=== PATIENT | male | born 1990 | race Caucasian/White ===

== ENCOUNTER 2018-02-09 22:58 | Emergency (ER) | payer OTHER, MEDICAID ==
[2018-02-09 23:08] VITALS: BP 127/72; BMI 30.9
[2018-02-10] MEDS ORDERED: DEMEROL INJ IM ONE (02:05)
--- NOTE | 2018-02-10 02:05 | DR.GENAD ---
HPI - PCP Primary Care Physician: NFD - Complaint/Symptoms Chief Complaint Doctors Comments: Patient presented to the ED for his way catheter to be removed. Chief Complaint:: PT HAD KIDNEY TRNASPLANT 01/07/2006. WAS IN [facility] FOR POSSIBLE REJECTION OF KIDNEY. THEY SENT PT HOME WITH WAY CATH. TODAY HE WAS IN [place] AND WENT TO WASH HANDS. HAD SHARP PAIN AND NOTICED BLOOD IN DRAINAGE. - Source History Provided: Patient, Family Member - Mode of Arrival Mode of Arrival: Ambulatory - Timing Onset of Chief Complaint: 02/09/18 PMH - PMH Past Medical History: Yes Past Medical History: COPD, Dialysis, Hypertension, Renal Disease Past Surgical History: Yes Surgical History: Ortho Surgery, Other Past Surgical History Comment: KIDNEY TRANSPLANT, - Family History History of Family Medical Conditions: Yes Family Medical History: Diabetes Mellitus, Coronary Artery Disease, Hypertension - Social History Does patient currently use any type of tobacco product: Yes Have you used tobacco products in the last 12 months: Yes Type of Tobacco Use: Cigarettes How many years tobacco product used: 10 Does any household member use tobacco: Yes Alcohol Use: None Do you use any recreational Drugs:: No Lives With: Family Lives Where: Home - infectious screening In the last 2 months have you had wt loss of >10#?: NO Have you had fever, night sweats or hemotysis?: No Have you traveled outside the country in the last 6 months?: No Isolation: Standard ROS - Review of Systems Eyes: No Symptoms Reported ENTM: No Symptoms Reported Respiratoy: No Symptoms Reported Cardiovascular: No Symptoms Reported Gastrointestinal/Abdominal: No Symptoms Reported Genitourinary: No Symptoms Reported Neurological: No Symptoms Reported Musculoskeletal: No Symptoms Reported Integumentary: No Symptoms Reported Hematologic/Lymphatic: No Symptoms Reported Endocrine: No Symptoms Reported Psychiatric: No Symptoms Reported All Other Systems: Reviewed and Negative PE - Vital Signs Vitals: Temperature 99.3 F Pulse Rate 110 Respiratory Rate 20 Blood Pressure 127/72 O2 Sat by Pulse Oximetry 93 - General General Appearance: Alert, In No Apparent Distress - Head Head Exam: Normal Inspection, Atraumatic - Eyes Eye exam: Normal Appearance, PERRL, EOMI - ENT ENT Exam: Normal Exam External Ear Exam: Normal External Inspection TM/Canal Exam: Bilateral Normal Nose Exam: Normal Nose Exam Mouth Exam: Normal Inspection Throat Exam: Normal Inspection - Neck Neck Exam: Normal Inspection, Full ROM - Chest Chest Inspection: Normal Inspection - Respiratory Respiratory Exam: Normal Lung Sounds Bilat Respiratory Exam: Bilateral Clear to Auscultation - Cardiovascular Cardiovascular Exam: Regular Rate, Normal Rhythm - Abdominal Exam Abdominal Exam: Normal Inspection, Normal Bowel Sounds Abdominal Tenderness: negative: RUQ, RLQ, LUQ, LLQ, Epigastrium, Suprapubic, Diffuse, Mild, Moderate, Severe, Other - Extremities Extremities Exam: Normal Inspection - Back Back Exam: Normal Inspection - Neurologic Neurological Exam: Alert, Oriented X3, CN II-XII Intact - Psychiatric Psychiatric Exam: Normal Affect - Skin Skin Exam: Warm, Dry, Intact ROR - Labs Reviewed Laboratory Results Reviewed?: Yes (UA: 3+bld;3+leuk, 10-20 wbc) Laboratory: Specimen Type Clean catch urine 02/10/18 03:01 Urine Color Yellow (YELLOW) 02/10/18 03:01 Urine Appearance Slightly hazy (CLEAR) 02/10/18 03:01 Urine pH 6.0 (5.0 - 8.0) 02/10/18 03:01 Ur Specific [place] 1.015 (1.000-1.030) 02/10/18 03:01 Urine Protein 2+ (NEGATIVE) 02/10/18 03:01 Urine Glucose (UA) Negative (NEGATIVE) 02/10/18 03:01 Urine Ketones Negative (NEGATIVE) 02/10/18 03:01 Urine Occult Blood 3+ (NEGATIVE) 02/10/18 03:01 Urine Nitrite Negative (NEGATIVE) 02/10/18 03:01 Urine Bilirubin Negative (NEGATIVE) 02/10/18 03:01 Urine Urobilinogen Normal (NORMAL) 02/10/18 03:01 Ur Leukocyte Esterase 3+ (NEGATIVE) 02/10/18 03:01 Urine RBC 5-10 /HPF (NONE SEEN) 02/10/18 03:01 Urine WBC 10-20 /HPF (NONE SEEN) 02/10/18 03:01 Ur Squamous Epith Cells Few /HPF (NEGATIVE) 02/10/18 03:01 Urine Bacteria 1+ /HPF (NEGATIVE) 02/10/18 03:01 Ur Culture Indicated? Yes/culture set up 02/10/18 03:01 - Diagnosis Discharge Problem: UTI (urinary tract infection) Qualifiers: Urinary tract infection type: acute cystitis Hematuria presence: with hematuria Qualified Code(s): N30.01 - Acute cystitis with hematuria - Discharge Plan Condition: Stable - Follow ups/Referrals Follow ups/Referrals: NFD,None [Primary Care Provider] - 3 days - Instructions
[2018-02-10] MEDS ORDERED: DEMEROL INJ ONE (02:11)
[2018-02-10] MEDS ORDERED: BENADRYL INJ 50 MG VIAL ONE (02:13)
[2018-02-10] MEDS ORDERED: BENADRYL INJ 50 MG VIAL IM ONE (02:14)
[2018-02-10 03:10] LABS: BILIRUBIN,URINE NEGATIVE (NEGATIVE); BLOOD/HEMOGLOBIN,URINE 3+ (NEGATIVE); GLUCOSE, URINE NEGATIVE (NEGATIVE); KETONES,URINE NEGATIVE (NEGATIVE); LEUKOCYTE ESTERASE ,URINE 3+ (NEGATIVE); NITRITES,URINE NEGATIVE (NEGATIVE); PROTEIN,URINE 2+ (NEGATIVE); UROBILINOGEN,URINE NORMAL (NORMAL)
[2018-02-10 03:27] LABS: APPEARANCE,URINE SLIGHTLY HAZY (CLEAR); COLOR,URINE YELLOW (YELLOW)
[2018-02-10 03:28] LABS: BACTERIA,URINE 1+ /HPF (NEGATIVE); SQUAMOUS EPITHELIAL CELL,UR FEW /HPF (NEGATIVE)
[2018-02-10] MEDS ORDERED: BACTRIM DS TAB PO ONE ×2 (03:51→03:54)
== END 2018-02-10 03:59 | disposition home or self-care (01) ==
LOC: ER 23:27
DX: N30.01 Acute cystitis with hematuria (principal)
CPT/HCPCS: 81001; 87086; 96372; 99282; 99283; J1200; J2175